=== PATIENT | female | born 1980 | race Caucasian/White ===

== ENCOUNTER 2016-10-21 00:20 | Emergency (ER) | payer SELFPAY ==
[2016-10-21 00:31] VITALS: BP 124/83; BMI 29.2
--- NOTE | 2016-10-21 01:01 | DR.GENAD ---
HPI - PCP Primary Care Physician: [id number] - Complaint/Symptoms Chief Complaint Doctors Comments: Patient admits to tampon in vaginal for couple days unable to retrieve. 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, Other - Family History History of Family Medical Conditions: Yes Family Medical History: Cancer, Heart Failure - Social History Does patient currently use any type of tobacco product: Yes Have you used tobacco products in the last 12 months: Yes Type of Tobacco Use: Cigarettes Does any household member use tobacco: Yes Alcohol Use: None Do you use any recreational Drugs:: No Lives With: Spouse Lives Where: Home - infectious screening In the last 2 months have you had wt loss of >10#?: NO Have you had fever, night sweats or hemotysis?: No Have you traveled outside the country in the last 6 months?: No Isolation: Standard ROS - Review of Systems Constitutional: No Symptoms Reported Eyes: No Symptoms Reported ENTM: No Symptoms Reported Respiratoy: No Symptoms Reported Cardiovascular: No Symptoms Reported Gastrointestinal/Abdominal: No Symptoms Reported Genitourinary: No Symptoms Reported Neurological: No Symptoms Reported Musculoskeletal: No Symptoms Reported Integumentary: No Symptoms Reported Hematologic/Lymphatic: No Symptoms Reported Endocrine: No Symptoms Reported Psychiatric: No Symptoms Reported All Other Systems: Reviewed and Negative PE - Vital Signs Vitals: Temperature 97.7 F Pulse Rate 89 Respiratory Rate 16 Blood Pressure [Right Arm] 130/71 Blood Pressure 124/83 O2 Sat by Pulse Oximetry 97 - General Limitations: No Limitations General Appearance: Alert, In No Apparent Distress - Head Head Exam: Normal Inspection, Atraumatic - Eyes Eye exam: Normal Appearance, PERRL, EOMI - ENT ENT Exam: Normal Exam External Ear Exam: Normal External Inspection TM/Canal Exam: Bilateral Normal Nose Exam: Normal Nose Exam Mouth Exam: Normal Inspection Throat Exam: Normal Inspection - Neck Neck Exam: Normal Inspection - Chest Chest Inspection: Normal Inspection - Respiratory Respiratory Exam: Normal Lung Sounds Bilat Respiratory Exam: Bilateral Clear to Auscultation - Cardiovascular Cardiovascular Exam: Regular Rate, Normal Rhythm - Abdominal Exam Abdominal Exam: Normal Inspection Abdominal Tenderness: negative: RUQ, RLQ, LUQ, LLQ, Epigastrium, Suprapubic, Diffuse, Mild, Moderate, Severe, Other - Extremities Extremities Exam: Normal Inspection - Back Back Exam: Normal Inspection - Neurologic Neurological Exam: Alert, Oriented X3, CN II-XII Intact - Psychiatric Psychiatric Exam: Normal Affect, Normal Mood - Skin Skin Exam: Warm, Dry, Intact - Other Exam Other Exam: Patient placed in the dorsal position lighted speculum inserted intravaginally and retrieved a tampon was retrieved w/o difficulty - Diagnosis Discharge Problem: Retained tampon Qualifiers: Encounter type: initial encounter Qualified Code(s): T19.2XXA - Foreign body in vulva and vagina, initial encounter - Discharge Plan Condition: Stable - Follow ups/Referrals Follow ups/Referrals: NFD,None [Primary Care Provider] - 3 days - Instructions
== END 2016-10-21 01:19 | disposition home or self-care (01) ==
LOC: ER 00:20
DX: T19.2XXA Foreign body in vulva and vagina, initial encounter (principal)
CPT/HCPCS: 99282; 99284

== ENCOUNTER 2017-04-06 19:06 | Emergency (ER) | payer SELFPAY ==
[2017-04-06 19:14] VITALS: BMI 27.1
[2017-04-06] MEDS ORDERED: NORFLEX INJ IM ONE (21:23)
[2017-04-06] MEDS ORDERED: TORADOL 60 MG VIAL IM ONE (21:23)
--- NOTE | 2017-04-06 21:24 | DR.GENAD ---
HPI - PCP Primary Care Physician: nfd - HPI Comment HPI Comment: GETTING WORSE. NO DYSURIA. NO FEVER. - Complaint/Symptoms Chief Complaint Doctors Comments: LOWER BACK PAIN, SKIN RASH ON BUTTOCKS AND LEFT EAR PAIN TIMES 4 DAYS. 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, Other - Family History History of Family Medical Conditions: Yes Family Medical History: Cancer, Heart Failure - Social History Alcohol Use: None Do you use any recreational Drugs:: No Lives With: Family Lives Where: Home - infectious screening In the last 2 months have you had wt loss of >10#?: NO Have you had fever, night sweats or hemotysis?: No Have you traveled outside the country in the last 6 months?: No Isolation: Standard ROS - Review of Systems Constitutional: Weakness, Fatigue Eyes: negative: Eye Pain, Discharge ENTM: Ear Pain (LT EAR.) Respiratoy: negative: Productive Cough, Non-Productive Cough, Short of Breath, Wheezing Cardiovascular: negative: Chest Pain, Edema Gastrointestinal/Abdominal: negative: Abdominal Pain, Diarrhea, Nausea, Vomiting Genitourinary: negative: Dysuria, Frequency, Hematuria Neurological: Headache, Weakness, Dizziness Musculoskeletal: Back Pain Integumentary: Change in Color, Rash Hematologic/Lymphatic: No Symptoms Reported Endocrine: No Symptoms Reported All Other Systems: Reviewed and Negative PE - Vital Signs Vitals: Temperature 97.8 F Pulse Rate [Left Radial] 100 Pulse Rate 102 Respiratory Rate 18 Blood Pressure [Right Arm] 142/90 Blood Pressure 146/94 O2 Sat by Pulse Oximetry 100 - General Limitations: No Limitations General Appearance: Alert - Head Head Exam: Normal Inspection - Eyes Eye exam: Normal Appearance - ENT ENT Exam: Normal External Ear Exam, TM's Normal Bilaterally (LT TM INFLAME) External Ear Exam: Normal External Inspection TM/Canal Exam: Left Erythema Nose Exam: Normal Nose Exam Mouth Exam: Normal Inspection Throat Exam: Tonsillar Erythema - Neck Neck Exam: Trachea Midline - Chest Chest Inspection: Symmetric Chest Wall Rise - Respiratory Respiratory Exam: Normal Lung Sounds Bilat Respiratory Exam: Bilateral Rhonchi, Upper Rhonchi, Lower Rhonchi - Cardiovascular Cardiovascular Exam: Regular Rate, Normal Rhythm, Normal Heart Sounds - Abdominal Exam Abdominal Exam: Normal Bowel Sounds, Soft. negative: Tenderness - Extremities Extremities Exam: Normal Inspection. negative: Tenderness - Back Back Exam: Normal Inspection - Neurologic Neurological Exam: Alert, Oriented X3 - Psychiatric Psychiatric Exam: Normal Affect, Normal Mood - Skin Skin Exam: Normal Color MDM - Differential Diagnosis Differential Diagnosis: OTITIS MEDIA, MUSCULOSKTETAL PAIN LOWER BACK, SKIN RASH Course - Treatment Treatment: SEE ORDERS. - Education/Counseling Education/Counseling: Patient, Education Educated On: Treatment, Diagnosis, Needs for Follow Up ROR - XRAY XRAY Interpreted by: Radiologist XRAY Findings: REPORT DISCUSS WITH PATIENT. - Diagnosis Discharge Problem: Skin rash Lower back pain Qualifiers: Chronicity: acute Back pain laterality: bilateral Sciatica presence: without sciatica Qualified Code(s): M54.5 - Low back pain Otitis media Qualifiers: Otitis media type: suppurative Chronicity: acute Laterality: left Recurrence: not specified as recurrent Spontaneous tympanic membrane rupture: without spontaneous rupture Qualified Code(s): H66.002 - Acute suppurative otitis media without spontaneous rupture of ear drum, left ear - Discharge Plan Disposition: 01 HOME, SELF-CARE Condition: Stable Prescriptions: Cyclobenzaprine HCl [FLEXERIL 10 MG *] 10 mg PO TID PRN #20 tab PRN Reason: Ibuprofen [MOTRIN TAB 800 MG *] 800 mg PO Q8H PRN #20 tab PRN Reason: Pain/Inflammation Sulfamethoxazole-Trimethoprim [BACTRIM DS TAB 800/160 MG *] 1 tab PO BID #20 tab - Follow ups/Referrals Follow ups/Referrals: NFD,None [Primary Care Provider] - 3 days - Instructions Instructions: Back Pain, Adult, [id number], Earache, Rash, [id number] Additional Instructions: RETURN TO ED IF WORSE.
[2017-04-06] MEDS ORDERED: NORFLEX INJ ONE (21:27)
[2017-04-06] MEDS ORDERED: TORADOL 60 MG VIAL ONE (21:27)
--- NOTE | 2017-04-06 22:58 | RAD ---
Five views of the lumbar spine Indication: Lower back pain Findings: Lumbar spine demonstrates no evidence of fracture or spondylolisthesis. Mild multilevel spo ndylosis. No significant facet arthropathy identified. SI joints are intact. Impression: Mild multilevel spondylosis without acute fracture or spondylolisthesis within the lumbar spine. Reported By:
[2017-04-06] MEDS ORDERED: BACTRIM DS TAB PO ONE ×2 (23:24→23:34)
[2017-04-06 23:41] VITALS: BP 142/90
== END 2017-04-06 23:38 | disposition home or self-care (01) ==
LOC: ER 19:17
DX: M54.5 Low back pain (principal); H66.002 Acute suppurative otitis media without spontaneous rupture of ear drum, left ear; R21 Rash and other nonspecific skin eruption
CPT/HCPCS: 72110; 96372; 99282; J1885; J2360

== ENCOUNTER 2017-04-25 11:58 | Emergency (ER) | payer SELFPAY ==
[2017-04-25 12:02] VITALS: BP 125/90; BMI 25.6
--- NOTE | 2017-04-25 14:52 | DR.GENAD ---
HPI - PCP Primary Care Physician: NFD - Complaint/Symptoms Chief Complaint Doctors Comments: Patient states that her has the same thing. Chief Complaint:: PATIENT STATED THAT SHE IS HURTING ALL OVER AND SICK. SHE STATED THAT THIS STARTED TODAY. 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, Other - Family History History of Family Medical Conditions: Yes Family Medical History: Cancer, Heart Failure - Social History Does patient currently use any type of tobacco product: Yes Have you used tobacco products in the last 12 months: Yes Type of Tobacco Use: Cigarettes Does any household member use tobacco: No Alcohol Use: None Do you use any recreational Drugs:: No Lives With: Family Lives Where: Home - infectious screening In the last 2 months have you had wt loss of >10#?: NO Have you had fever, night sweats or hemotysis?: No Have you traveled outside the country in the last 6 months?: No Isolation: Standard ROS - Review of Systems Eyes: No Symptoms Reported ENTM: No Symptoms Reported Respiratoy: No Symptoms Reported Cardiovascular: No Symptoms Reported Gastrointestinal/Abdominal: No Symptoms Reported Genitourinary: No Symptoms Reported Neurological: No Symptoms Reported Musculoskeletal: No Symptoms Reported Integumentary: No Symptoms Reported Hematologic/Lymphatic: No Symptoms Reported Endocrine: No Symptoms Reported Psychiatric: No Symptoms Reported All Other Systems: Reviewed and Negative PE - Vital Signs Vitals: Temperature 98.0 F Pulse Rate 99 Respiratory Rate 20 Blood Pressure [Right Arm] 142/90 Blood Pressure 125/90 O2 Sat by Pulse Oximetry 100 - General Limitations: No Limitations General Appearance: Alert, Anxious - Head Head Exam: Normal Inspection, Atraumatic - Eyes Eye exam: Normal Appearance, PERRL, EOMI - ENT ENT Exam: Normal Exam External Ear Exam: Normal External Inspection TM/Canal Exam: Bilateral Normal Nose Exam: Normal Nose Exam Mouth Exam: Normal Inspection Throat Exam: Normal Inspection - Neck Neck Exam: Normal Inspection, Full ROM - Chest Chest Inspection: Normal Inspection - Respiratory Respiratory Exam: Normal Lung Sounds Bilat Respiratory Exam: Bilateral Clear to Auscultation - Cardiovascular Cardiovascular Exam: Regular Rate, Normal Rhythm - Abdominal Exam Abdominal Exam: Normal Inspection Abdominal Tenderness: negative: RUQ, RLQ, LUQ, LLQ, Epigastrium, Suprapubic, Diffuse, Mild, Moderate, Severe, Other - Extremities Extremities Exam: Normal Inspection, Full ROM - Back Back Exam: Normal Inspection, Full ROM - Neurologic Neurological Exam: Alert, Oriented X3, CN II-XII Intact - Psychiatric Psychiatric Exam: Normal Affect - Skin Skin Exam: Warm Course - Reevaluation 1st: Unchanged ROR - Labs Reviewed Laboratory Results Reviewed?: Yes (Influenza A positive) Result Diagrams: 04/25/17 15:05 04/25/17 15:05 Laboratory: Sodium 137 mmol/L (136-145) 04/25/17 15:05 Corrected Sodium TNP 04/25/17 15:05 Potassium 3.6 mmol/L (3.5-5.1) 04/25/17 15:05 Chloride 101 mmol/L (98-107) 04/25/17 15:05 Carbon Dioxide 27.6 mmol/L (21-32) 04/25/17 15:05 BUN 9 mg/dL (7-18) 04/25/17 15:05 Creatinine 0.63 mg/dL (0.55-1.02) 04/25/17 15:05 Est GFR (MDRD) Af Amer > 60 (>60) 04/25/17 15:05 Est GFR (MDRD) Non-Af > 60 (>60) 04/25/17 15:05 Glucose 94 mg/dL (65-99) 04/25/17 15:05 Calcium 8.8 mg/dL (8.5-10.1) 04/25/17 15:05 Influenza Type A (PCR) Positive (NEGATIVE) A 04/25/17 15:21 Influenza Type B (PCR) Negative (NEGATIVE) 04/25/17 15:21 - Diagnosis Discharge Problem: Influenza A - Discharge Plan Condition: Stable - Follow ups/Referrals Follow ups/Referrals: NFD,None [Primary Care Provider] - 3 days - Instructions
[2017-04-25] MEDS ORDERED: TORADOL 30 MG VIAL IVP ONE (14:57)
[2017-04-25] MEDS ORDERED: NS 1000 ML 1,000 ML IV ONE (14:57)
[2017-04-25] MEDS ORDERED: NS 1000 ML 1,000 ML ONE (15:01)
[2017-04-25] MEDS ORDERED: TORADOL 30 MG VIAL ONE (15:01)
[2017-04-25 15:37] LABS: BASOPHILS # (AUTO) 0.1 X10^3/uL (0.0-0.1); EOSINOPHILS # (AUTO) 0.1 x10^3/uL (0.0-0.2); EOSINOPHILS % (AUTO) 1.2 % (0.9-2.9); HEMATOCRIT 27.4 % (36.0-47.0); HEMOGLOBIN 8.4 g/dL (12.0-16.0); LYMPHOCYTES # (AUTO) 0.8 X10^3/uL (1.3-2.9); LYMPHOCYTES % (AUTO) 13.8 % (21.0-51.0); MEAN CORPUSCULAR HEMOGLOBIN 19.3 pg (27.0-34.0); MEAN CORPUSCULAR HGB CONC 30.8 g/dL (33.0-35.0); MEAN CORPUSCULAR VOLUME 62.6 fL (80.0-100.0); MONOCYTES # (AUTO) 0.4 x10^3/uL (0.3-0.8); MONOCYTES % (AUTO) 6.6 % (0.0-13.0); NEUTROPHILS # (AUTO) 4.5 x10^3/uL (2.2-4.8); NEUTROPHILS % (AUTO) 77.4 % (42.0-75.0); PLATELET COUNT 386 X10^3/uL (150.0-450.0); RED BLOOD COUNT 4.38 X10^6/uL (3.5-5.4); WHITE BLOOD COUNT 5.8 X10^3/uL (3.6-10.0)
[2017-04-25 15:38] LABS: BLOOD UREA NITROGEN 9 mg/dL (7-18); CALCIUM 8.8 mg/dL (8.5-10.1); CARBON DIOXIDE 27.6 mmol/L (21-32); CHLORIDE 101 mmol/L (98-107); CREATININE 0.63 mg/dL (0.55-1.02); SODIUM 137 mmol/L (136-145); eGFR BLACK RACES > 60 (>60); eGFR NON BLACK RACES > 60 (>60)
[2017-04-25 16:10] LABS: BAND NEUTROPHILS % 12 % (0-10); BASOPHILS % (MANUAL) 2 % (0-1)
[2017-04-25 16:13] LABS: PLATELET MORPHOLOGY COMMENT NORMAL (NORMAL)
[2017-04-25 16:23] LABS: HYPOCHROMASIA 3+
== END 2017-04-25 16:30 | disposition home or self-care (01) ==
LOC: ER 12:34
DX: J11.1 Influenza due to unidentified influenza virus with other respiratory manifestations (principal)
CPT/HCPCS: 36415; 80048; 85025; 87502; 96365; 96374; 99282; 99283; A4222; J1885

== ENCOUNTER 2017-09-05 10:44 | Emergency (ER) | payer SELFPAY ==
[2017-09-05 10:50] VITALS: BP 135/85; BMI 24.7
--- NOTE | 2017-09-05 11:05 | DR.FBACK ---
HPI - Time Seen Time seen: 11:05 - PCP Primary Care Physician: TAYLER - HPI Comment HPI Comment: PAIN WORSE TODAY. ALSO VOIDING SMALL AMOUNT OF URINE. NO FEVER. NO DYSURIA. - Complaint Chief Complaint Doctor Comments: LOWER BACK PAIN RADIATING TO RT GROIN TIMES SEVERAL DAYS. Chief Complaint:: PT C/O ONE WEEK AGO PT STARTED HAVING BACK AND KIDNEY PAIN , AND PT C/O VOIDING AND ONLY A FEW DROPS COME OUT .. PT C/O LOWER BAKC PAIN THAT RADIATES TO HER RIGHT GROIN AREA AND SHE C/O URGENCY TO GO . Self Treatment fo Chief Complaint: AZO, - Reviewed Nurses Notes Review: Yes - Source History Provided: Patient - Mode of Arrival Mode of Arrival: Ambulatory - Timing Onset of Chief Complaint: 08/27/17 - Duration Duration: Constant Duration: Days - Location Back Pain Location: Lumbar Radiation To: Right (GROIN) - Severity Severity: Moderate - Quality Quality: Sharp - Context Onset: Spontaneous Circumstance: Spontaneous History of: None - Modifying Factors Worsened By: None - Associated Signs and Symptoms Back Pain Symptoms: Nausea Numbness: None Weakness: None PMH - PMH Past Medical History: No Past Medical History: Hypertension Past Surgical History: No 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, 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, 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 - Family History History of Family Medical Conditions: No Family Medical History: Cancer, Heart Failure - Social History Does patient currently use any type of tobacco product: Yes Have you used tobacco products in the last 12 months: Yes Type of Tobacco Use: Cigarettes How many years tobacco product used: 20 Does any household member use tobacco: No Alcohol Use: None Do you use any recreational Drugs:: No Lives With: Family Lives Where: Home - infectious screening In the last 2 months have you had wt loss of >10#?: NO Have you had fever, night sweats or hemotysis?: No Have you traveled outside the country in the last 6 months?: No Isolation: Standard ROS - Review of Systems Constitutional: No Symptoms Reported Eyes: No Symptoms Reported ENTM: No Symptoms Reported Respiratoy: No Symptoms Reported Cardiovascular: No Symptoms Reported Gastrointestinal/Abdominal: Other (RT GROIN PAIN) Genitourinary: Pain (RT GROIN), Other (DECREASE URINE OUTPUT.) Neurological: No Symptoms Reported Musculoskeletal: No Symptoms Reported Integumentary: No Symptoms Reported Hematologic/Lymphatic: No Symptoms Reported Endocrine: No Symptoms Reported All Other Systems: Reviewed and Negative PE - Vitals Vital Signs: Temp Pulse Resp BP BP Pulse Ox 09/05/17 10:47 97.4 F L 103 H 20 135/85 100 04/25/17 11:59 125/90 04/06/17 23:40 142/90 - General Limitations: No Limitations General Appearance: Alert - Head Head Exam: Normal Inspection - Eyes Eye exam: Normal Appearance - ENT ENT Exam: Normal External Ear Exam - Chest Chest Inspection: Symmetric Chest Wall Rise - Respiratory Respiratory Exam: Normal Lung Sounds Bilat Respiratory Exam: Bilateral Clear to Auscultation - Cardiovascular Cardiovascular Exam: Regular Rate, Normal Rhythm, Normal Heart Sounds - Abdominal Exam Abdominal Exam: Normal Bowel Sounds, Soft, Tenderness Abdominal Tenderness: RLQ - Genitourinary External Exam: Female: Deferred : Speculum Exam (Female): Deferred : Bimanual Exam (female): Deferred - Extremities Extremities Exam: Normal Inspection - Back Back Exam: Tenderness (LOWER OFFICE 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 - Education/Counseling Education/Counseling: Patient, Education Educated On: Diagnosis, Needs for Follow Up ROR - Labs Reviewed Laboratory Results Reviewed?: Yes Result Diagrams: 09/05/17 11:24 09/05/17 11:24 Laboratory: 09/05/17 12:23 Urine,Clean Catch Urine Culture - Preliminary WBC 10.8 X10^3/uL (3.6-10.0) H 09/05/17 11:24 RBC 3.97 X10^6/uL (3.5-5.4) 09/05/17 11:24 Hgb 7.5 g/dL (12.0-16.0) L 09/05/17 11:24 Hct 24.6 % (36.0-47.0) L 09/05/17 11:24 MCV 61.9 fL (80.0-100.0) L 09/05/17 11:24 MCH 18.9 pg (27.0-34.0) L 09/05/17 11:24 MCHC 30.5 g/dL (33.0-35.0) L 09/05/17 11:24 RDW 22.2 % (11.6-16.5) H 09/05/17 11:24 Plt Count 354 X10^3/uL (150.0-450.0) 09/05/17 11:24 Plt Count Comment Adequate (ADEQUATE) 09/05/17 11:24 MPV 9.2 fL (7.4-11.0) 09/05/17 11:24 Neut % (Auto) 77.5 % (42.0-75.0) H 09/05/17 11:24 Lymph % (Auto) 13.2 % (21.0-51.0) L 09/05/17 11:24 [place] % (Auto) 7.0 % (0.0-13.0) 09/05/17 11:24 Eos % (Auto) 1.6 % (0.9-2.9) 09/05/17 11:24 Baso % (Auto) 0.7 % (0.2-1.0) 09/05/17 11:24 Neut # (Auto) 8.4 x10^3/uL (2.2-4.8) H 09/05/17 11:24 Lymph # (Auto) 1.4 X10^3/uL (1.3-2.9) 09/05/17 11:24 [place] # (Auto) 0.8 x10^3/uL (0.3-0.8) 09/05/17 11:24 Eos # (Auto) 0.2 x10^3/uL (0.0-0.2) 09/05/17 11:24 Baso # (Auto) 0.1 X10^3/uL (0.0-0.1) 09/05/17 11:24 Absolute Nucleated RBC 0.0 /100WBC 09/05/17 11:24 Plt Morphology Comment Normal (NORMAL) 09/05/17 11:24 RBC Morphology Abnormal (NORMAL) A 09/05/17 11:24 Hypochromasia 3+ A 09/05/17 11:24 Anisocytosis 2+ A 09/05/17 11:24 Microcytosis 2+ A 09/05/17 11:24 Sodium 136 mmol/L (136-145) 09/05/17 11:24 Corrected Sodium TNP 09/05/17 11:24 Potassium 3.7 mmol/L (3.5-5.1) 09/05/17 11:24 Chloride 102 mmol/L (98-107) 09/05/17 11:24 Carbon Dioxide 27.4 mmol/L (21-32) 09/05/17 11:24 BUN 16 mg/dL (7-18) 09/05/17 11:24 Creatinine 0.78 mg/dL (0.55-1.02) 09/05/17 11:24 Est GFR (MDRD) Af Amer > 60 (>60) 09/05/17 11:24 Est GFR (MDRD) Non-Af > 60 (>60) 09/05/17 11:24 Glucose 86 mg/dL (65-99) 09/05/17 11:24 Calcium 8.5 mg/dL (8.5-10.1) 09/05/17 11:24 Corrected Calcium 9.4 mg/dL (8.5-10.1) 09/05/17 11:24 Total Bilirubin 0.20 mg/dL (0.2-1.0) 09/05/17 11:24 AST 15 Units/L (15-37) 09/05/17 11:24 ALT 20 Units/L (12-78) 09/05/17 11:24 Alkaline Phosphatase 82 Units/L (46-116) 09/05/17 11:24 Total Protein 7.2 g/dL (6.4-8.2) 09/05/17 11:24 Albumin 2.9 g/dL (3.4-5.0) L 09/05/17 11:24 Globulin 4.3 g/dL (2.5-4.5) 09/05/17 11:24 Albumin/Globulin Ratio 0.7 Ratio (1.1-2.1) L 09/05/17 11:24 Specimen Type Clean catch urine 09/05/17 12:23 Urine Color Yellow (YELLOW) 09/05/17 12:23 Urine Appearance Hazy (CLEAR) 09/05/17 12:23 Urine pH 5.0 (5.0 - 8.0) 09/05/17 12:23 Ur Specific [place] 1.015 (1.000-1.030) 09/05/17 12:23 Urine Protein 2+ (NEGATIVE) 09/05/17 12:23 Urine Glucose (UA) Negative (NEGATIVE) 09/05/17 12:23 Urine Ketones Negative (NEGATIVE) 09/05/17 12:23 Urine Occult Blood 2+ (NEGATIVE) 09/05/17 12:23 Urine Nitrite Positive (NEGATIVE) 09/05/17 12:23 Urine Bilirubin Negative (NEGATIVE) 09/05/17 12:23 Urine Urobilinogen Normal (NORMAL) 09/05/17 12:23 Ur Leukocyte Esterase 3+ (NEGATIVE) 09/05/17 12:23 Urine RBC 3-5 /HPF (NONE SEEN) 09/05/17 12:23 Urine WBC 10-20 /HPF (NONE SEEN) 09/05/17 12:23 Ur Squamous Epith Cells Moderate /HPF (NEGATIVE) 09/05/17 12:23 Urine Bacteria Negative /HPF (NEGATIVE) 09/05/17 12:23 Urine Mucus Few /HPF (NEGATIVE) 09/05/17 12:23 Ur Culture Indicated? Yes/culture set up 09/05/17 12:23 - XRAY XRAY Interpreted by: Radiologist XRAY Findings: REPORT DISCUSS WITH PATIENT. - Diagnosis Discharge Problem: Back pain Urinary tract infection Qualifiers: Urinary tract infection type: acute cystitis Hematuria presence: without hematuria Qualified Code(s): N30.00 - Acute cystitis without hematuria - Discharge Plan Disposition: 01 HOME, SELF-CARE Condition: Stable Prescriptions: Ibuprofen [MOTRIN TAB 800 MG *] 800 mg PO Q8H PRN #20 tab PRN Reason: Pain/Inflammation Phenazopyridine HCl [Pyridium] 200 mg PO Q8H PRN #12 tablet PRN Reason: Sulfamethoxazole-Trimethoprim [BACTRIM DS TAB 800/160 MG *] 1 tab PO BID #20 tab - Follow ups/Referrals Follow ups/Referrals: JON HERNÁNDEZ [STAFF PHYSICIAN] - 2 days NFD,None [Primary Care Provider] - 2 days - Instructions Instructions: Back Pain, Adult, Urinary Tract Infection, Adult, [id number] Additional Instructions: RETURN TO ED IF WORSE.
[2017-09-05] MEDS ORDERED: ZOFRAN INJ 4 MG VIAL IVP ONE (11:10)
[2017-09-05] MEDS ORDERED: NS 1000 ML 1,000 ML IV ONE (11:10)
[2017-09-05] MEDS ORDERED: TORADOL 30 MG VIAL IVP ONE (11:10)
[2017-09-05] MEDS ORDERED: NS 1000 ML 1,000 ML ONE (11:17)
[2017-09-05] MEDS ORDERED: ZOFRAN INJ 4 MG VIAL ONE (11:18)
[2017-09-05] MEDS ORDERED: TORADOL 30 MG VIAL ONE (11:19)
[2017-09-05 11:44] LABS: BASOPHILS # (AUTO) 0.1 X10^3/uL (0.0-0.1); BASOPHILS % (AUTO) 0.7 % (0.2-1.0); EOSINOPHILS # (AUTO) 0.2 x10^3/uL (0.0-0.2); EOSINOPHILS % (AUTO) 1.6 % (0.9-2.9); HEMATOCRIT 24.6 % (36.0-47.0); HEMOGLOBIN 7.5 g/dL (12.0-16.0); LYMPHOCYTES # (AUTO) 1.4 X10^3/uL (1.3-2.9); LYMPHOCYTES % (AUTO) 13.2 % (21.0-51.0); MEAN CORPUSCULAR HEMOGLOBIN 18.9 pg (27.0-34.0); MEAN CORPUSCULAR HGB CONC 30.5 g/dL (33.0-35.0); MEAN CORPUSCULAR VOLUME 61.9 fL (80.0-100.0); MEAN PLATELET VOLUME 9.2 fL (7.4-11.0); MONOCYTES # (AUTO) 0.8 x10^3/uL (0.3-0.8); NEUTROPHILS # (AUTO) 8.4 x10^3/uL (2.2-4.8); NEUTROPHILS % (AUTO) 77.5 % (42.0-75.0); PLATELET COUNT 354 X10^3/uL (150.0-450.0); RED BLOOD COUNT 3.97 X10^6/uL (3.5-5.4); RED CELL DISTRIBUTION WIDTH 22.2 % (11.6-16.5); WHITE BLOOD COUNT 10.8 X10^3/uL (3.6-10.0)
[2017-09-05 11:51] LABS: ALANINE AMINOTRANSFERASE 20 Units/L (12-78); ALBUMIN 2.9 g/dL (3.4-5.0); ALKALINE PHOSPHATASE 82 Units/L (46-116); ASPARTATE AMINO TRANSFERASE 15 Units/L (15-37); BLOOD UREA NITROGEN 16 mg/dL (7-18); CALCIUM 8.5 mg/dL (8.5-10.1); CARBON DIOXIDE 27.4 mmol/L (21-32); CHLORIDE 102 mmol/L (98-107); COR CA(FOR HYPOALB) 9.4 mg/dL (8.5-10.1); CREATININE 0.78 mg/dL (0.55-1.02); SODIUM 136 mmol/L (136-145); TOTAL PROTEIN 7.2 g/dL (6.4-8.2); eGFR BLACK RACES > 60 (>60); eGFR NON BLACK RACES > 60 (>60)
[2017-09-05 11:59] LABS: ANISOCYTOSIS 2+; HYPOCHROMASIA 3+; MICROCYTOSIS 2+; PLATELET MORPHOLOGY COMMENT NORMAL (NORMAL)
[2017-09-05 12:37] LABS: BILIRUBIN,URINE NEGATIVE (NEGATIVE); BLOOD/HEMOGLOBIN,URINE 2+ (NEGATIVE); GLUCOSE, URINE NEGATIVE (NEGATIVE); KETONES,URINE NEGATIVE (NEGATIVE); LEUKOCYTE ESTERASE ,URINE 3+ (NEGATIVE); NITRITES,URINE POSITIVE (NEGATIVE); PROTEIN,URINE 2+ (NEGATIVE); UROBILINOGEN,URINE NORMAL (NORMAL)
[2017-09-05 12:39] LABS: APPEARANCE,URINE HAZY (CLEAR); COLOR,URINE YELLOW (YELLOW)
--- NOTE | 2017-09-05 12:44 | CT ---
STUDY: CT ABDOMEN AND PELVIS WITHOUT IV AND ORAL CONTRAST HISTORY: Right-sided flank pain. Comparison: None. Technique: Multiple axial images of the abdomen and pelvis were obtained from the lung bases to the pubic symphysis without the administration of IV contrast. Findings: The visualized portions of the lung bases are unremarkable. CT abdomen: Liver appears enlarged, measuring 25.2 cm in maximum transverse dimension and 19.5 cm in superior inferior dimension. The gallbladder, spleen, pancreas, and adrenal glands are normal in anay earance. There is horseshoe kidney identified. There is no evidence of hydronephrosis. No stones are identified. No significant mesenteric lymphadenopathy or inflammatory stranding is appreciated. The stomach is normal in appearance. The small bowel is normal in appearance, without evidence of bow el wall thickening or small bowel obstruction. The terminal ileum and cecum are normal. The appendix is normal in appearance. There is no evidence of right lower quadrant fat stranding. The ascending a nd transverse colon are within normal limits. The descending colon contains scattered diverticuli. CT pelvis: The sigmoid colon is normal in appearance. The rectum is normal. The urinary bladder is no rmal. No abnormal fluid collections are identified in the pelvis. There is no evidence of acute osseous abnormality. IMPRESSION: 1. Hepatomegaly. 2. Horseshoe kidney. 3. Diverticulosis, without evidence of diverticulitis. Reported By:
[2017-09-05 12:49] LABS: BACTERIA,URINE NEGATIVE /HPF (NEGATIVE); SQUAMOUS EPITHELIAL CELL,UR MODERATE /HPF (NEGATIVE)
[2017-09-05 12:50] LABS: MUCUS,URINE FEW /HPF (NEGATIVE)
== END 2017-09-05 14:04 | disposition home or self-care (01) ==
LOC: ER 10:55
DX: N30.00 Acute cystitis without hematuria (principal); M54.5 Low back pain; B96.20 Unspecified Escherichia coli [E. coli] as the cause of diseases classified elsewhere; R16.0 Hepatomegaly, not elsewhere classified; Q63.1 Lobulated, fused and horseshoe kidney; K57.90 Diverticulosis of intestine, part unspecified, without perforation or abscess without bleeding
CPT/HCPCS: 36415; 74176; 80053; 81001; 85025; 87086; 87088; 87186; 96365; 96374; 96375; 99282; 99283; A4222; J1885; J2405

== ENCOUNTER 2017-09-06 12:36 | Emergency (ER) | payer SELFPAY ==
[2017-09-06 12:43] VITALS: BP 135/83; BMI 27.3
--- NOTE | 2017-09-06 12:53 | DR.EXTPAIN ---
HPI - Time seen Time seen: 13:15 - PCP Primary Care Physician: paradise - Complaint/Symptoms Chief Complaint Doctor Comments: Patient was seen on last night was diagnosed with UTI given Rx,complains of dysuria (did not get the phenazopyridine) Chief Complaint:: pt stated she was seen yesterday, her hemiglobin was 7.5 and she is passing out. pt stated she still is having pain to her right flank and can not urinate. - Source History Provided: Patient, Family Member - Mode of arrival Mode of Arrival: Ambulatory - Timing Onset of Chief Complaint: 09/05/17 PMH - PMH Past Medical History: Yes Past Medical History: Anemia, Hypertension Past Surgical History: No Surgical History: SCRAP WHEELER Surgery, 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, Other - Family History History of Family Medical Conditions: Yes Family Medical History: Cancer, Heart Failure - Social History Does patient currently use any type of tobacco product: No Have you used tobacco products in the last 12 months: No Type of Tobacco Use: None Does any household member use tobacco: No Alcohol Use: None Do you use any recreational Drugs:: No Lives With: Family Lives Where: Home - infectious screening In the last 2 months have you had wt loss of >10#?: NO Have you had fever, night sweats or hemotysis?: No Have you traveled outside the country in the last 6 months?: No Isolation: Standard ROS - Review of Systems Eyes: No Symptoms Reported ENTM: No Symptoms Reported Respiratoy: No Symptoms Reported Cardiovascular: No Symptoms Reported Gastrointestinal/Abdominal: No Symptoms Reported Genitourinary: No Symptoms Reported Neurological: No Symptoms Reported Musculoskeletal: No Symptoms Reported Integumentary: No Symptoms Reported Hematologic/Lymphatic: No Symptoms Reported Endocrine: No Symptoms Reported Psychiatric: No Symptoms Reported All Other Systems: Reviewed and Negative PE - Vital Signs Vitals: Temperature 98.7 F Pulse Rate 84 Respiratory Rate 18 Blood Pressure [Right Arm] 142/90 Blood Pressure 135/83 O2 Sat by Pulse Oximetry 99 - General Limitations: No Limitations General Appearance: Alert, In No Apparent Distress - Head Head Exam: Normal Inspection, Atraumatic - Eyes Eye exam: Normal Appearance, PERRL, EOMI - ENT ENT Exam: Normal Exam - Neck Neck Exam: Normal Inspection, Full ROM - Chest Chest Inspection: Normal Inspection - Respiratory Respiratory Exam: Normal Lung Sounds Bilat Respiratory Exam: Bilateral Clear to Auscultation - Cardiovascular Cardiovascular Exam: Regular Rate, Normal Rhythm - Abdominal Exam Abdominal Exam: Normal Inspection, Normal Bowel Sounds Abdominal Tenderness: negative: RUQ, RLQ, LUQ, LLQ, Epigastrium, Suprapubic, Diffuse, Mild, Moderate, Severe, Other - Extremities Extremities Exam: Normal Inspection, Full ROM - Upper Extremities Shoulder Exam: Normal Inspection Arm Exam: Normal Inspection Elbow Exam: Normal Inspection Forearm Exam: Normal Inspection Hand Exam: Normal Inspection Neuromotor Exam: Normal Exam Neurosensory Exam: Normal Exam Hand Tendon Exam: Flexor Digitorium Profundus (Location) Upper Ext. Vascular Exam: Capillary Refill, Radial Pulse - Lower Extremities Hip/Pelvis Exam: Normal Inspection, Full ROM Upper Leg Exam: Normal Inspection Knee Exam: Normal Inspection, Full ROM Lower Leg Exam: Normal Inspection, Full ROM Ankle Exam: Normal Inspection, Full ROM Foot/Toe Exam: Normal Inspection Neurovascular/Tendon Exam: Normal Capillary Refill Gait Exam: Observed and Normal - Back Back Exam: Normal Inspection - Neurological Neurological Exam: Alert, Oriented X3, CN II-XII Intact - Psychiatric Psychiatric Exam: Normal Affect - Skin Skin Exam: Warm, Dry, Intact Distribution: Generalized Description: Tenderness ROR - Labs Reviewed Result Diagrams: 09/06/17 12:53 09/06/17 12:53 Laboratory: WBC 5.7 X10^3/uL (3.6-10.0) 09/06/17 12:53 RBC 3.92 X10^6/uL (3.5-5.4) 09/06/17 12:53 Hgb 7.2 g/dL (12.0-16.0) L 09/06/17 12:53 Hct 24.3 % (36.0-47.0) L 09/06/17 12:53 MCV 62.1 fL (80.0-100.0) L 09/06/17 12:53 MCH 18.4 pg (27.0-34.0) L 09/06/17 12:53 MCHC 29.6 g/dL (33.0-35.0) L 09/06/17 12:53 RDW 22.4 % (11.6-16.5) H 09/06/17 12:53 Plt Count 323 X10^3/uL (150.0-450.0) 09/06/17 12:53 Plt Count Comment Adequate (ADEQUATE) 09/06/17 12:53 MPV 8.8 fL (7.4-11.0) 09/06/17 12:53 Neut % (Auto) 61.6 % (42.0-75.0) 09/06/17 12:53 Lymph % (Auto) 24.5 % (21.0-51.0) 09/06/17 12:53 [place] % (Auto) 10.0 % (0.0-13.0) 09/06/17 12:53 Eos % (Auto) 2.8 % (0.9-2.9) 09/06/17 12:53 Baso % (Auto) 1.1 % (0.2-1.0) H 09/06/17 12:53 Neut # (Auto) 3.5 x10^3/uL (2.2-4.8) 09/06/17 12:53 Lymph # (Auto) 1.4 X10^3/uL (1.3-2.9) 09/06/17 12:53 [place] # (Auto) 0.6 x10^3/uL (0.3-0.8) 09/06/17 12:53 Eos # (Auto) 0.2 x10^3/uL (0.0-0.2) 09/06/17 12:53 Baso # (Auto) 0.1 X10^3/uL (0.0-0.1) 09/06/17 12:53 Absolute Nucleated RBC 0.1 /100WBC 09/06/17 12:53 Total Counted 100 09/06/17 12:53 Neutrophils % (Manual) 74 % (39-76) 09/06/17 12:53 Lymphocytes % (Manual) 20 % (13-43) 09/06/17 12:53 Monocytes % (Manual) 4 % (4-9) 09/06/17 12:53 Atypical Lymphocytes 2 09/06/17 12:53 Plt Morphology Comment Normal (NORMAL) 09/06/17 12:53 RBC Morphology Abnormal (NORMAL) A 09/06/17 12:53 Dimorphic RBCs 2+ 09/06/17 12:53 Hypochromasia 3+ A 09/06/17 12:53 Poikilocytosis 2+ A 09/06/17 12:53 Anisocytosis 3+ A 09/06/17 12:53 Microcytosis 2+ A 09/06/17 12:53 Target Cells Slight A 09/06/17 12:53 Ovalocytes 1+ A 09/06/17 12:53 Sodium 140 mmol/L (136-145) 09/06/17 12:53 Corrected Sodium TNP 09/06/17 12:53 Potassium 3.6 mmol/L (3.5-5.1) 09/06/17 12:53 Chloride 106 mmol/L (98-107) 09/06/17 12:53 Carbon Dioxide 24.5 mmol/L (21-32) 09/06/17 12:53 BUN 13 mg/dL (7-18) 09/06/17 12:53 Creatinine 0.80 mg/dL (0.55-1.02) 09/06/17 12:53 Est GFR (MDRD) Af Amer > 60 (>60) 09/06/17 12:53 Est GFR (MDRD) Non-Af > 60 (>60) 09/06/17 12:53 Glucose 100 mg/dL (65-99) H 09/06/17 12:53 Calcium 8.5 mg/dL (8.5-10.1) 09/06/17 12:53 Corrected Calcium 9.5 mg/dL (8.5-10.1) 09/06/17 12:53 Total Bilirubin 0.10 mg/dL (0.2-1.0) L 09/06/17 12:53 AST 16 Units/L (15-37) 09/06/17 12:53 ALT 22 Units/L (12-78) 09/06/17 12:53 Alkaline Phosphatase 82 Units/L (46-116) 09/06/17 12:53 Creatine Kinase 35 Units/L (26-192) 09/06/17 11:24 CK-MB (CK-2) < 1.0 ng/mL (0-4.0) 09/06/17 11:24 CK/CKMB % Calc 2.9 % (<4) 09/06/17 11:24 Troponin I < 0.02 ng/mL (0-1.5) 09/06/17 11:24 C-Reactive Protein 117.90 mg/L (0-3.0) H 09/06/17 12:53 Total Protein 7.0 g/dL (6.4-8.2) 09/06/17 12:53 Albumin 2.7 g/dL (3.4-5.0) L 09/06/17 12:53 Globulin 4.3 g/dL (2.5-4.5) 09/06/17 12:53 Albumin/Globulin Ratio 0.6 Ratio (1.1-2.1) L 09/06/17 12:53 - Discharge Plan Condition: Stable - Follow ups/Referrals Follow ups/Referrals: JON HERNÁNDEZ [Primary Care Provider] - 3 days - Instructions
[2017-09-06 13:12] LABS: ALANINE AMINOTRANSFERASE 22 Units/L (12-78); ALBUMIN 2.7 g/dL (3.4-5.0); ALKALINE PHOSPHATASE 82 Units/L (46-116); ASPARTATE AMINO TRANSFERASE 16 Units/L (15-37); BLOOD UREA NITROGEN 13 mg/dL (7-18); CALCIUM 8.5 mg/dL (8.5-10.1); CARBON DIOXIDE 24.5 mmol/L (21-32); CHLORIDE 106 mmol/L (98-107); COR CA(FOR HYPOALB) 9.5 mg/dL (8.5-10.1); SODIUM 140 mmol/L (136-145); eGFR BLACK RACES > 60 (>60); eGFR NON BLACK RACES > 60 (>60)
[2017-09-06 13:13] LABS: BASOPHILS # (AUTO) 0.1 X10^3/uL (0.0-0.1); BASOPHILS % (AUTO) 1.1 % (0.2-1.0); EOSINOPHILS # (AUTO) 0.2 x10^3/uL (0.0-0.2); EOSINOPHILS % (AUTO) 2.8 % (0.9-2.9); HEMATOCRIT 24.3 % (36.0-47.0); HEMOGLOBIN 7.2 g/dL (12.0-16.0); LYMPHOCYTES # (AUTO) 1.4 X10^3/uL (1.3-2.9); LYMPHOCYTES % (AUTO) 24.5 % (21.0-51.0); MEAN CORPUSCULAR HEMOGLOBIN 18.4 pg (27.0-34.0); MEAN CORPUSCULAR HGB CONC 29.6 g/dL (33.0-35.0); MEAN CORPUSCULAR VOLUME 62.1 fL (80.0-100.0); MEAN PLATELET VOLUME 8.8 fL (7.4-11.0); MONOCYTES # (AUTO) 0.6 x10^3/uL (0.3-0.8); NEUTROPHILS # (AUTO) 3.5 x10^3/uL (2.2-4.8); NEUTROPHILS % (AUTO) 61.6 % (42.0-75.0); PLATELET COUNT 323 X10^3/uL (150.0-450.0); RED BLOOD COUNT 3.92 X10^6/uL (3.5-5.4); RED CELL DISTRIBUTION WIDTH 22.4 % (11.6-16.5); WHITE BLOOD COUNT 5.7 X10^3/uL (3.6-10.0)
[2017-09-06] MEDS ORDERED: TORADOL 60 MG VIAL IM ONE (13:26)
[2017-09-06] MEDS ORDERED: TORADOL 60 MG VIAL ONE (13:30)
[2017-09-06 13:38] LABS: PLATELET MORPHOLOGY COMMENT NORMAL (NORMAL)
[2017-09-06 13:39] LABS: ANISOCYTOSIS 3+; HYPOCHROMASIA 3+; MICROCYTOSIS 2+; POIKILOCYTOSIS 2+
[2017-09-06 13:40] LABS: TARGET CELLS SLIGHT
[2017-09-06 13:41] LABS: OVALOCYTES 1+
[2017-09-06 13:59] LABS: CKMB % 2.9 % (<4); CREATINE KINASE 35 Units/L (26-192); CREATINE KINASE MB < 1.0 ng/mL (0-4.0); TROPONIN I < 0.02 ng/mL (0-1.5)
== END 2017-09-06 14:45 | disposition home or self-care (01) ==
LOC: ER 12:53
DX: D64.9 Anemia, unspecified (principal); N30.00 Acute cystitis without hematuria
CPT/HCPCS: 36415; 80053; 82550; 82553; 84484; 85025; 86140; 93005; 93010; 96372; 99282; 99283; J1885

== ENCOUNTER 2024-03-19 16:17 | Observation (INO) ==
[2024-03-19] MEDS ORDERED: PROVENTIL NEB TX 0.083% 2.5MG/ 3ML NEB PRN (17:02)
[2024-03-19 17:34] LABS: BASOPHILS # (AUTO) 0.1 X10^3/uL (0.0-0.1); EOSINOPHILS # (AUTO) 0.3 x10^3/uL (0.0-0.2); EOSINOPHILS % (AUTO) 2.9 % (0.9-2.9)
[2024-03-19 17:38] LABS: NEUTROPHILS # (AUTO) 7.1 x10^3/uL (2.2-4.8)
[2024-03-19 17:41] LABS: ALANINE AMINOTRANSFERASE 17 Units/L (12-78); ALBUMIN 3.6 g/dL (3.4-5.0); ALKALINE PHOSPHATASE 110 Units/L (46-116); ASPARTATE AMINO TRANSFERASE 13 Units/L (15-37); BLOOD UREA NITROGEN 12 mg/dL (7-18); CALCIUM 9.5 mg/dL (8.5-10.1); CARBON DIOXIDE 28.3 mmol/L (21-32); CHLORIDE 102 mmol/L (98-107); CREATININE 0.85 mg/dL (0.55-1.02); GLUCOSE 96 mg/dL (65-99); POTASSIUM 3.6 mmol/L (3.5-5.1); SODIUM 139 mmol/L (136-145); TOTAL PROTEIN 7.6 g/dL (6.4-8.2); eGFR NON BLACK RACES > 60 (>60)
[2024-03-19 17:43] VITALS: BMI 27.8
[2024-03-19 17:45] LABS: BASOPHILS % (AUTO) 0.9 % (0.2-1.0); HEMATOCRIT 20.5 % (36.0-47.0); LYMPHOCYTES # (AUTO) 2.6 X10^3/uL (1.3-2.9); MEAN CORPUSCULAR HEMOGLOBIN 17.3 pg (27.0-34.0); MEAN CORPUSCULAR HGB CONC 30.1 g/dL (33.0-35.0); MEAN CORPUSCULAR VOLUME 57.4 fL (80.0-100.0); MEAN PLATELET VOLUME 8.8 fL (7.4-11.0); MONOCYTES # (AUTO) 0.4 x10^3/uL (0.3-0.8); MONOCYTES % (AUTO) 3.7 % (0.0-13.0); NEUTROPHILS % (AUTO) 67.5 % (42.0-75.0); PLATELET COUNT 340 X10^3/uL (150.0-450.0); RED BLOOD COUNT 3.58 X10^6/uL (3.5-5.4); RED CELL DISTRIBUTION WIDTH 22.4 % (11.6-16.5); RETICULOCYTE % 1.71 % (0.8-2.2); WHITE BLOOD COUNT 10.5 X10^3/uL (3.6-10.0)
[2024-03-19 17:54] LABS: HEMOGLOBIN 6.2 g/dL (12.0-16.0)
[2024-03-19] MEDS: PROTONIX TAB 40 MG PO SCH (17:55)
[2024-03-19] MEDS: NORCO 7.5/325 MG TAB PO PRN (17:55)
[2024-03-19 18:39] LABS: ANISOCYTOSIS 2+; HYPOCHROMASIA 3+; PLATELET MORPHOLOGY COMMENT NORMAL (NORMAL); POIKILOCYTOSIS PRESENT
[2024-03-19 18:40] LABS: MICROCYTOSIS 3+; OVALOCYTES PRESENT; SCHISTOCYTES PRESENT; TEAR DROP CELLS PRESENT
[2024-03-19] MEDS: NS 250 ML IV 250 ML IV ONE (21:38)
[2024-03-20 05:05] LABS: BASOPHILS # (AUTO) 0.1 X10^3/uL (0.0-0.1); MEAN CORPUSCULAR HEMOGLOBIN 19.8 pg (27.0-34.0); MEAN PLATELET VOLUME 8.6 fL (7.4-11.0)
[2024-03-20 05:11] LABS: BASOPHILS % (AUTO) 0.9 % (0.2-1.0); EOSINOPHILS # (AUTO) 0.4 x10^3/uL (0.0-0.2); EOSINOPHILS % (AUTO) 3.9 % (0.9-2.9); HEMATOCRIT 27.1 % (36.0-47.0); LYMPHOCYTES # (AUTO) 2.6 X10^3/uL (1.3-2.9); LYMPHOCYTES % (AUTO) 26.8 % (21.0-51.0); MEAN CORPUSCULAR HGB CONC 30.9 g/dL (33.0-35.0); MONOCYTES # (AUTO) 0.5 x10^3/uL (0.3-0.8); MONOCYTES % (AUTO) 4.6 % (0.0-13.0); NEUTROPHILS # (AUTO) 6.3 x10^3/uL (2.2-4.8); NEUTROPHILS % (AUTO) 63.8 % (42.0-75.0); PLATELET COUNT 298 X10^3/uL (150.0-450.0); RED BLOOD COUNT 4.24 X10^6/uL (3.5-5.4); RED CELL DISTRIBUTION WIDTH 28.2 % (11.6-16.5); WHITE BLOOD COUNT 9.8 X10^3/uL (3.6-10.0)
[2024-03-20 05:23] LABS: ALANINE AMINOTRANSFERASE 15 Units/L (12-78); ALBUMIN 3.2 g/dL (3.4-5.0); ALKALINE PHOSPHATASE 99 Units/L (46-116); ASPARTATE AMINO TRANSFERASE 17 Units/L (15-37); BLOOD UREA NITROGEN 9 mg/dL (7-18); CALCIUM 9.2 mg/dL (8.5-10.1); CARBON DIOXIDE 26.4 mmol/L (21-32); CHLORIDE 105 mmol/L (98-107); COR CA(FOR HYPOALB) 9.8 mg/dL (8.5-10.1); CREATININE 0.73 mg/dL (0.55-1.02); GLUCOSE 96 mg/dL (65-99); MAGNESIUM 1.7 mg/dL (2.0-2.9); POTASSIUM 4.4 mmol/L (3.5-5.1); SODIUM 138 mmol/L (136-145); TOTAL PROTEIN 6.9 g/dL (6.4-8.2); eGFR NON BLACK RACES > 60 (>60)
[2024-03-20 05:38] LABS: HEMOGLOBIN 8.4 g/dL (12.0-16.0)
[2024-03-20 05:39] LABS: ANISOCYTOSIS 3+; HYPOCHROMASIA 3+; MICROCYTOSIS 2+; OVALOCYTES PRESENT; PLATELET MORPHOLOGY COMMENT NORMAL (NORMAL); POIKILOCYTOSIS PRESENT; SCHISTOCYTES PRESENT; TEAR DROP CELLS PRESENT
[2024-03-20] MEDS ORDERED: TYLENOL 325 MG TAB PO PRN (07:53)
[2024-03-20] MEDS ORDERED: CONSULT PHARMACY - POTASSIUM & MAGNESIUM XX SCH (08:08)
[2024-03-20] MEDS: ZIAC 5/6.25 MG PO SCH (08:29)
[2024-03-20] MEDS: MAG-OX TAB PO SCH (08:32)
[2024-03-20] MEDS: ULTRAM PO PRN (08:32)
[2024-03-20] MEDS: LEXAPRO PO SCH (08:33)
[2024-03-20] MEDS: INFeD or DEXFERRUM 25 MG in NS 100 ML IV 100 ML IV ONE (09:55)
[2024-03-20] MEDS: INFeD or DEXFERRUM 975 MG in NS 500 ML IV 500 ML IV ONE (11:43)
[2024-03-20 12:08] VITALS: RESP 18
[2024-03-20] MEDS: LEXAPRO ONE (12:13)
[2024-03-20 16:05] VITALS: BP 132/79; PULSE 60; TEMP 97.2; O2SAT 96
== END 2024-03-20 15:25 | disposition home or self-care (01) ==
LOC: MED/SURG
PROVIDERS: ADMIT Obstetrics & Gynecology Obstetrics; ATTEND Obstetrics & Gynecology Obstetrics
DX: Z66 Do not resuscitate; E83.42 Hypomagnesemia; D50.0 Iron deficiency anemia secondary to blood loss (chronic); M54.16 Radiculopathy, lumbar region